=== PATIENT | male | born 1965 | race Caucasian/White ===

== ENCOUNTER 2019-05-05 11:54 | Day surgery (SDC) | payer OTHER, SELFPAY ==
--- NOTE | 2019-05-05 | PATH_ITS ---
[facility] Accession Number: [id number] . 01 Material submitted: . PART A: colon - TRANSVERSE POLYP, 6-8 MM X1, 4-6 MM X2 PART B: sigmoid colon - SIGMOID POLYP, 4-6 MM . 02 Diagnosis: A. Transverse Colon, 6-8 MM X1, 4-6 MM X2, Polyps: Fragments of tubular adenoma (3 polyps removed). . B. Sigmoid Colon, 4-6 MM, Polyp: Tubular adenoma. [facility] 05/08/2019 1003 Local . 02 Electronically signed: . Bon Ferrer MD, PhD, Pathologist NPI- [id number] . 01 Gross description: . Part A: TRANSVERSE POLYP, 6-8 MM X1, 4-6 MM X2: Received in formalin are 4 fragment(s) of pastrana, soft tissue measuring 0.2 x 0.2 x 0.2 cm to 0.3 x 0.2 x 0.2 cm which is entirely submitted and submitted entirely in 1 cassette(s) Part B: SIGMOID POLYP, 4-6 MM: Received in formalin is 1 fragment(s) of pastrana, soft tissue measuring 0.3 x 0.3 x 0.2 cm which is entirely submitted and submitted entirely in 1 cassette(s) /[facility] 05/05/2019 2018 Local . 02 Pathologist provided ICD-10: D12.3, D12.5 . 02 CPT . 009297, 235033 Performed at: 01 [facility], [facility] [address] [id number] MD Abdiaziz Novoa MD Phone: [phone] Performed at: 02 [facility] [address] [place], [place] [id number] MD Kati Aponte MD Phone: [phone]
[2019-05-05 12:24] VITALS: BP 154/106; PULSE 86; RESP 15; TEMP 36.2; O2SAT 95; BMI 27.8
[2019-05-05] MEDS: SODIUM CHLORIDE 0.9% 1,000 ML 200 ML IV (12:31)
[2019-05-05] MEDS: HYOSCYAMINE 0.125 MG TABLET PO (12:32)
--- NOTE | 2019-05-05 13:02 | PM.PREOP ---
Pre-operative Note Interval Note History & Physical reviewed/Exam performed by Physician: Yes Changes to H&P: No ASA Class (for procedural sedation): II
--- NOTE | 2019-05-05 13:03 | PM.OP.ENDO ---
Operative Date/Time/Diagnoses Date of procedure: 05/05/19 Time of procedure: 13:03 Pre-op diagnosis: 1. Irritable bowel syndrome 2. History of abdominal pain, left lower quadrant 3. Screening for colon cancer Post-op diagnosis: other (Transverse polyp x3, with 4-8 mm; sigmoid polyp x1, 4-6 mm) Procedure & Clinicians Study performed: Colonoscopy Same procedure as scheduled: Yes Indications: 1. Irritable bowel syndrome 2. History of abdominal pain, left lower quadrant 3. Screening for colon cancer Surgeon: Mary Stroud Procedure Notes SCOAP/Timeout: 13:08 Procedure in detail: ENDOSCOPIST: Mary Stroud MD Sedation RN: Brisa Elena RN Sedation start time: 1:08 p.m. Sedation end time: 1:34 p.m. PROCEDURE: Colonoscopy with biopsy INDICATIONS: 1. Irritable bowel syndrome 2. History of abdominal pain, left lower quadrant 3. Screening for colon cancer MEDICATION: Levsin 0.125 mg sublingual, incremental doses of Versed and fentanyl until appropriate level sedation achieved. ASA CLASS: 2 CECAL WITHDRAWAL TIME: 17 minutes COMPLICATIONS: None. EXTENT OF PROCEDURE: Cecum. QUALITY OF PREP: Good with portions of liquid stool. PROCEDURE: Prior to insertion of the colonoscope, a digital rectal examination was accomplished with circumferential palpation of the distal rectal mucosa without significant findings being noted. The high-definition colonoscope was passed into the rectum in the usual fashion and advanced over to the cecum without difficulty. The ileocecal valve, appendiceal stoma, and medial wall all could be inspected and []no abnormalities were seen. ASCENDING COLON: As the colonoscope was withdrawn, care was taken to expose and inspect the haustral folds and no abnormalities were seen. HEPATIC FLEXURE: Normal no polyps, diverticula or other abnormalities. TRANSVERSE COLON: 3 polyps, 4-8 mm in size were noted and removed with cold biopsy forceps, excellent hemostasis. Otherwise, normal, no diverticula or other abnormalities. DESCENDING COLON: Normal no polyps, diverticula or other abnormalities. SIGMOID COLON: One 4-6 mm polyp, removed with cold biopsy forceps, excellent hemostasis. Otherwise, normal, no polyps, diverticula or other abnormalities. RECTUM: Normal. J maneuver was produced. There was no significant perianal disease. The J maneuver was broken. The remainder of the rectum was inspected and there was no external hemorrhoid disease. The scope was withdrawn. IMPRESSION: 1. Transverse polyp x3, 4-8 mm, removed with cold biopsy forceps 2. Sigmoid polyp x1, 4-6 mm, removed with cold biopsy forceps PLAN: 1. Follow-up in clinic status post pathology results. The possibility of a missed lesion including a malignancy has been discussed with the patient previously. Potential alarm symptoms have been discussed and should be reported immediately. Scope withdrawal time: 17 minutes Sedation minutes: 24 Findings: polyp Specimen(s): other Complications: none Impression: As above. Post-procedure Recommendations: Will call with biopsy results Follow up: weeks (2) Disposition: PACU
[2019-05-05] MEDS: fentaNYL 250 MCG/5 ML INJ IV (13:38)
[2019-05-05] MEDS: MIDAZOLAM 5 MG/5 ML VIAL IV (13:39)
[2019-05-05 13:40] VITALS: BP 117/85; PULSE 79; RESP 12; TEMP 37; O2SAT 97
[2019-05-05 13:45] VITALS: BP 116/85; PULSE 103; RESP 10; O2SAT 95
[2019-05-05 13:52] VITALS: BP 118/99; PULSE 82; RESP 13; TEMP 36.2; O2SAT 98
[2019-05-05 14:20] VITALS: BP 121/89; PULSE 79; RESP 14; TEMP 36.1; O2SAT 98
== END 2019-05-05 14:25 ==
LOC: ENDO 11:55
PROVIDERS: PCP Family Medicine; Visit Provider Student in an Organized Health Care Education/Training Program
PROC: 0DJD8ZZ Inspection of Lower Intestinal Tract, Via Natural or Artificial Opening Endoscopic (ICD-10-PCS; CPT 45378; principal; 2019-05-05 13:00)
DX: Z12.11 Encounter for screening for malignant neoplasm of colon (principal); D12.3 Benign neoplasm of transverse colon; D12.5 Benign neoplasm of sigmoid colon
CPT/HCPCS: 45380; J2250; J3010

== ENCOUNTER 2019-06-25 14:35 | Emergency (ER) | payer OTHER, SELFPAY ==
[2019-06-25 14:42] VITALS: BP 160/107; PULSE 85; RESP 18; TEMP 36.4; O2SAT 97; BMI 28.0
--- NOTE | 2019-06-25 15:07 | DI.RAD.S_ITS ---
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 COMPARISON: None. FINDINGS: Bones: No fractures or dislocations. Carpal bones are normally aligned. No suspicious bony lesions. Soft tissues: Soft tissue swelling and apparent soft tissue gas can be seen. Evaluation is limited by overlying gauze material. No radiopaque foreign bodies are seen. IMPRESSION: Soft tissue injury, without a radiopaque foreign body seen. No displaced fracture can be seen. If it would be helpful for clinical management decision making, please consider a dedicated CT of the hand for further evaluation. Dictated by: Arturo Ornelas M.D. on 06/25/2019 at 14:34 Approved by: Arturo Ornelas M.D. on 06/25/2019 at 14:35
--- NOTE | 2019-06-25 17:52 | PC.NURSE ---
Splint and bulky dressing applied per Kaye. Capillary refill vs compression education given. Pt indicates understanding.
[2019-06-25 18:05] VITALS: BP 146/86; PULSE 72; RESP 16; O2SAT 98
--- NOTE | 2019-06-25 19:06 | ED.WOUNDLAC ---
HPI - Wound/Laceration <DANITA Che - Last Filed: 06/25/19 19:11> General Chief Complaint: Wound/Laceration Stated Complaint: cut on left hand Time Seen by Provider: 06/25/19 15:03 Source: patient and family Mode of arrival: Ambulatory Limitations: no limitations History of Present Illness HPI narrative: The patient is a 54-year-old male nonsmoker with history of seasonal allergies who presents with a chief complaint of a laceration on his left hand. He states he accidentally cut his palm on a blade of a queasy not mixer blender. He states his tetanus was in the last year. He states he has full range of motion of his left hand. He states that the cut is at the base of the thumb. He states he has not washed out. He is not concerned about foreign body. Related Data Home Medications Medication Instructions Recorded Confirmed atorvastatin [Lipitor] 40 mg PO DAILY 05/05/19 05/05/19 fluticasone propionate [Flonase 2 spray INTRANASAL DAILY 05/05/19 05/05/19 Allergy Relief] Allergies Allergy/AdvReac Type Severity Reaction Status Date / Time No Known Drug Allergies Allergy Verified 06/25/19 14:42 Review of Systems <DANITA Che - Last Filed: 06/25/19 19:11> Review of Systems Narrative: GENERAL: Denies chills, fatigue, malaise, fever, sweats. HEENT: Denies sinus pain, ear pain, sore throat, difficulty swallowing, dizziness. RESPIRATORY: Denies dyspnea, cough, wheezing, hemoptysis, sputum. CARDIOVASCULAR: Denies chest pain, palpitations, orthopnea, edema, GASTROINTESTINAL: Denies nausea, vomiting, abdominal pain, diarrhea, constipation, melena. : Denies dysuria, frequency, incontinence, hematuria, urinary retention. MUSCULOSKELETAL: denies weakness, joint pain, or bony pain SKIN: See HPI NEUROLOGIC: Denies weakness, headache, numbness, change in speech, confusion, seizures, incoordination. PSYCHIATRIC: No concerning psychosocial issues. 12 point review of systems is negative except for those stated above Patient History <DANITA Che - Last Filed: 06/25/19 19:11> Social History household members: spouse Smoking Status: Never smoker alcohol intake frequency: a few times a week Substance Use Type: marijuana Exam <DANITA Che - Last Filed: 06/25/19 19:11> Narrative Exam Narrative: GENERAL: This is a well-nourished, well-developed patient, in no acute distress HEAD: Atraumatic. Normocephalic. No temporal or scalp tenderness. EYES: Pupils equal round and reactive. Extraocular motions intact. No scleral icterus. No injection or drainage. ENT: Nose without bleeding, purulent drainage or septal hematoma. Throat without erythema, tonsillar hypertrophy or exudate. Uvula midline. Airway patent. NECK: Trachea midline. No JVD or lymphadenopathy. Supple, nontender, no meningeal signs. CARDIOVASCULAR: Regular rate and rhythm RESPIRATORY: No cough. No increased respiratory effort. No accessory muscle use. EXTREMITIES: 6 cm laceration noted over base of left 1st digit on palmar aspect. Through dermis, no obvious muscle or tendon involvement. Able do thumbs up, thumbs down, make a fist. Able to flex and extend left 1st digit against resistance. Capillary refill less than 2 seconds. Laceration is oozing blood. 1.5 cm separation between signs of laceration. linear. BACK: Nontender without deformity or crepitance. No flank tenderness. NEURO: AOx3. SKIN: See extremity exam Initial Vital Signs Initial Vital Signs: Vital Signs Temperature 97.6 F 06/25/19 14:42 Pulse Rate 85 06/25/19 14:42 Respiratory Rate 18 06/25/19 14:42 Blood Pressure 160/107 H 06/25/19 14:42 Pulse Oximetry 97 06/25/19 14:42 <Shantel Turpin MD - Last Filed: 06/26/19 07:05> Initial Vital Signs Initial Vital Signs: Vital Signs Temperature 97.6 F 06/25/19 14:42 Pulse Rate 85 06/25/19 14:42 Respiratory Rate 18 06/25/19 14:42 Blood Pressure 160/107 H 06/25/19 14:42 Pulse Oximetry 97 06/25/19 14:42 Procedures <DANITA Che - Last Filed: 06/25/19 19:11> Laceration Repair Laceration 1: Site: hand Side (If applicable): left Size (cm): 6 Description: linear Depth: simple, single layer Local Anesthetic: lidocaine 2% and with epi Amount of anesthesia used (mL): 6 Pre-repair: wound explored, irrigated extensively (With Hibiclens, cleansed with iodine as well) and deep structures intact Skin layer closed with: nylon Size (cm): 5-0 Number of sutures: 6 Technique: simple, interrupted (3) and horizontal mattress (3) Course <DANITA Che - Last Filed: 06/25/19 19:11> Orders Ordered: Discontinued Medications Lidocaine/Epinephrine (Xylocaine 2% W/Epi) 20 ml INJ INTRA-OP ONE Stop: 06/25/19 15:08 Last Admin: 06/25/19 16:15 Dose: Not Given Documented by: TIO Vital Signs Vital signs: Vital Signs - 8 hr 06/25/19 14:42 06/25/19 18:05 Temperature 97.6 F Pulse Rate 85 72 Respiratory Rate 18 16 Blood Pressure 160/107 H Blood Pressure [Right Arm] 146/86 H Pulse Oximetry 97 98 <Shantel Turpin MD - Last Filed: 06/26/19 07:05> Orders Ordered: Discontinued Medications Lidocaine/Epinephrine (Xylocaine 2% W/Epi) 20 ml INJ INTRA-OP ONE Stop: 06/25/19 15:08 Last Admin: 06/25/19 16:15 Dose: Not Given Documented by: TIO Vital Signs Vital signs: Vital Signs - 8 hr 06/25/19 14:42 06/25/19 18:05 Temperature 97.6 F Pulse Rate 85 72 Respiratory Rate 18 16 Blood Pressure 160/107 H Blood Pressure [Right Arm] 146/86 H Pulse Oximetry 97 98 MDM - Wound/Laceration <DANITA Che - Last Filed: 06/25/19 19:11> Imaging Data Hand x-ray: Radiologist's impression: [address] [address] XRay Report Signed Patient: Olvin Hairston WMR#: [id number] : 1965Acct:[id number] Age/Sex: 54 / MDate of Service: 06/25/19 Loc: ED Accession Number: [id number] Procedure: XR hand LT 2V Ordering Provider: Isela RestrepoBC PROCEDURE: XR HAND LT 2V 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 COMPARISON: None. FINDINGS: Bones: No fractures or dislocations. Carpal bones are normally aligned. No suspicious bony lesions. Soft tissues: Soft tissue swelling and apparent soft tissue gas can be seen. Evaluation is limited by overlying gauze material. No radiopaque foreign bodies are seen. IMPRESSION: Soft tissue injury, without a radiopaque foreign body seen. No displaced fracture can be seen. If it would be helpful for clinical management decision making, please consider a dedicated CT of the hand for further evaluation. Dictated by: Arturo Ornelas M.D. on 06/25/2019 at 14:34 Approved by: Arturo Ornelas M.D. on 06/25/2019 at 14:[address] [facility] Narrative Medical decision making narrative: The patient is a 54-year-old female who presents with a chief complaint of laceration. I was closed as noted in procedural note. Tolerated well. Who is copiously cleansed as noted in procedural note. His x-ray shows no foreign bodies or fractures. Patient's tetanus is up-to-date. Encouraged follow-up with primary care provider. Discussed monitor for signs and symptoms of infection such as redness pus swelling etc. Patient and state understanding of return precautions as well follow-up care no questions or concerns upon discharge. I discussed at length keeping the laceration clean, not increasing chance of infection by putting and dirty water. Follow up for suture removal in 7 days. Wound was dressed by nursing. Discharge Plan Departure Patient Disposition: Home Clinical Impression: Laceration Discharge Date/Time: 06/25/19 18:06 Instructions: How to Care for a Laceration After Repair, DI for Laceration Repair, How To Perform RICE (Rest, Ice, Compress, Elevate) Activity Restrictions/Additional Instructions: Today we sutured your hand. Please follow up in 1 week for suture removal. Please elevate your hand, use ice [id number] medications as needed and able Please monitor for signs and symptoms of infection such as redness pus and fever as well as decreased range of motion. Please come back to the emergency concerns. Please do not get your dressing wet. You can wash it with soap and water but do not keep wet dressing on as this will increase her chance of infection Prescriptions: No Action atorvastatin [Lipitor] 40 mg Tablet 40 mg PO DAILY RF: 0 fluticasone propionate [Flonase Allergy Relief] 50 mcg/actuation [place],Suspension 2 spray INTRANASAL DAILY RF: 0 Referrals: Max Aguilar MD [Primary Care Provider] -
== END 2019-06-25 18:06 | disposition home or self-care (01) ==
PROVIDERS: Emergency Provider Nurse Practitioner Family; PCP Family Medicine
DX: S61.412A Laceration without foreign body of left hand, initial encounter (principal); W26.9XXA Contact with unspecified sharp object(s), initial encounter
CPT/HCPCS: 12002; 73120; 99283

== ENCOUNTER → 2022-04-27 09:30 | Outpatient (CLI) | payer OTHER, SELFPAY ==
[2022-04-27 13:26] LABS: COVID19 -Nasal RAPID Negative (Negative)
== END ==
PROVIDERS: PCP Family Medicine; Visit Provider Surgery
DX: Z01.812 Encounter for preprocedural laboratory examination (principal); Z20.822 Contact with and (suspected) exposure to COVID-19
CPT/HCPCS: 87635; C9803

== ENCOUNTER 2022-04-28 09:25 | Day surgery (SDC) | payer OTHER, SELFPAY ==
[2022-04-28] VITALS (7 sets, daily range): BP systolic 137–151; BP diastolic 92–109; PULSE 69–88; RESP 10–20; TEMP 36.1–36.4; O2SAT 97–98; BMI 26.7
--- NOTE | 2022-04-28 | PATH_ITS ---
[facility] Accession Number: [id number] . 01 Material submitted: . PART A: colon - ASCENDING COLON POLYP PART B: colon - SIGMOID COLON POLYP . 01 Diagnosis: A. Ascending Colon, Polyp, Biopsy: Tubular adenoma. . B. Sigmoid Colon, Polyp, Biopsy: Tubular adenoma. V 04/30/2022 1332 Local . 01 Electronically signed: . Kati Aponte MD, Pathologist NPI- [id number] . 01 Gross description: . Part A: ASCENDING COLON POLYP: Received in formalin is 1 fragment(s) of pastrana, soft tissue measuring 0.3 x 0.2 x 0.2 cm submitted entirely in 1 cassette(s) Part B: SIGMOID COLON POLYP: Received in formalin is 1 fragment(s) of pastrana, soft tissue measuring 0.5 x 0.2 x 0.2 cm submitted entirely in 1 cassette(s) /AIN 04/29/2022 1930 Local . 01 Pathologist provided ICD-10: D12.2, D12.5 . 01 CPT . 098289, [id number] Performed at: 01 [facility] [address] [place] [id number] MD Abdiaziz Novoa MD Phone: [phone]
[2022-04-28] MEDS: LACTATED RINGERS 1,000 ML 200 ML IV (09:53)
--- NOTE | 2022-04-28 10:46 | PM.HP.1 ---
History of Present Illness History of Present Illness Date Patient Seen: 04/28/22 Time Patient Seen: 10:46 Chief complaint: DX COLONOSCOPY Narrative: The patient presents for colorectal screening. He has a personal history of colonic polyps. Last colonoscopy was 3 years ago and significant for benign polyps. No personal or family history of colon cancer. On further history denies any recent gastrointestinal symptoms. No nausea, vomiting, abdominal pain, loss of appetite, unexplained weight loss, change in bowel habits, diarrhea, constipation, melena, hematochezia, or bright red blood per rectum. Patient History Family & Social History Social History: household members spouse Tobacco & Substance use: Smoking Status Never smoker alcohol intake frequency a few times a week Substance Use Type marijuana Meds Home Medications and Allergies Home Medications Medication Instructions Recorded Confirmed Type atorvastatin 40 mg tablet (Lipitor) 40 mg PO DAILY 05/05/19 04/28/22 History fluticasone propionate 50 2 spray intranasal DAILY 05/05/19 04/28/22 History mcg/actuation nasal spray,suspension (Flonase Allergy Relief) Allergies Allergy/AdvReac Type Severity Reaction Status Date / Time No Known Drug Allergies Allergy Verified 04/28/22 09:51 Exam Vital Signs (past 8 hours): - 04/28/22 09:53 Temperature 96.9 F L Pulse Rate 88 Respiratory Rate 20 Blood Pressure 145/98 H Pulse Oximetry 97 Oxygen Delivery Method Room Air Oxygen Delivery Method Room Air Narrative Exam Narrative: General adult male alert oriented no acute distress Abdomen soft nontender nondistended Assessment & Plan Assessment and plan (1) Personal history of colonic polyps: Status: Acute Assessment & Plan narrative: The patient requires colorectal screening and colonoscopy is recommended. Technical details were discussed. Risks, benefits, alternatives explained. Risks including but not limited to myocardial infarction, aspiration, bleeding, pain, missed lesion, incomplete examination, need for further radiographic studies, colonic perforation, and need for major abdominal surgery were discussed. All questions were answered to their satisfaction, and they are in agreement with this plan. Time Spent With Patient Critical Care time: I spent a total of [] minutes of critical care time on this patient's care today; this time is exclusive of procedural time.
[2022-04-28] MEDS: fentaNYL 100 MCG/2 ML INJ 150 MCG IV (11:01)
[2022-04-28] MEDS: MIDAZOLAM 5 MG/5 ML VIAL 6 MG IV (11:01)
--- NOTE | 2022-04-28 11:14 | P.OP.COLON_ITS ---
Operative Date/Time/Diagnoses Date of procedure: 04/28/22 Time of procedure: 11:14 Pre-op diagnosis: Personal history of colonic polyps Post-op diagnosis: same Procedure & Clinicians Study performed: Colonoscopy and polypectomy Same procedure as scheduled: Yes Indications: Personal history of colonic polyps Surgeon: Vahe Rodriguez Procedure Notes Procedure in detail: Medications: Conscious sedation using 6mg IV midazolam and 150mcg IV of f entanyl The history and physical was performed/updated and the patient is ASA class is 2. The procedure was discussed in detail with the patient. Potential risks complications including infection, bleeding, missed diagnosis, perforation, need for surgery, and were explained. Their questions were answered and informed consent was obtained. Patient was brought to the procedure room and placed standard monitoring equipment. The patient's vital signs were monitored continuously throughout the entire procedure. Prior to starting time-out was performed. The patient was placed in the left lateral recumbent position. Procedural sedation was administered. Examination began with a thorough inspection of the perianal area there was no evidence of fissures, fistulae, external hemorrhoids or cutaneous malignancy. The colonoscopy scope was then placed into the anal canal and was advanced to the cecum, which was identified by the ileocecal valve, the appendiceal orifice and the confluence of the taenia. The scope was then slowly withdrawn examining colon thoroughly in all directions, irrigating it of any residual stool. FINDINGS 1. Ascending colon-3 mm from polyp removed with biopsy forceps 2. Sigmoid colon-5 mm polyp removed with biopsy forceps The patient tolerated the procedure well. They will be discharged once criteria are met. The prep was of good/excellent quality. The withdrawl time was 9 minutes. The sedation time was 18 minutes. Specimen(s): other (Ascending and sigmoid colon polyps) Complications: none Impression: Colonic polyps Post-procedure Plan for aftercare: Will notify with biopsy results Disposition: same day surgery
--- NOTE | 2022-04-28 11:54 | SUR.PHASEII ---
Patient ambulated to wheelchair with steady gait. Tolerated fluids. Provided written and verbal discharge instructions. patient stated understanding. Discharged patient by wheelchair to private vehicle in stable condition.
== END 2022-04-28 11:54 | disposition home or self-care (01) ==
PROVIDERS: PCP Family Medicine; Referring Provider Surgery; Visit Provider Surgery
PROC: 0DJD8ZZ Inspection of Lower Intestinal Tract, Via Natural or Artificial Opening Endoscopic (ICD-10-PCS; CPT 45378; principal; 2022-04-28 10:45)
DX: Z12.11 Encounter for screening for malignant neoplasm of colon (principal); Z86.010 Personal history of colon polyps; D12.2 Benign neoplasm of ascending colon; D12.5 Benign neoplasm of sigmoid colon
CPT/HCPCS: 45380; 99152; J2250; J3010

== ENCOUNTER 2022-11-29 00:27 | Emergency (ER) | payer OTHER, SELFPAY ==
[2022-11-29 00:39] VITALS: BP 153/89; PULSE 108; RESP 15; TEMP 37; O2SAT 98; BMI 28.0
--- NOTE | 2022-11-29 00:47 | DI.RAD.S_ITS ---
PROCEDURE: XR KNEE RT 3V INDICATIONS: Laceration to knee after fall, unsure what he cut knee on. TECHNIQUE: 3 views of the knee were acquired. COMPARISON: None. FINDINGS: Bones: No fractures or dislocations. No suspicious bony lesions. Note is made of quadriceps tendon insertion spurring at the superior patella. Soft tissues: No joint effusion. No suspicious soft tissue calcifications. There is a small amount of gas tracking along the superficial layer of the quadriceps tendon consistent with laceration. No foreign body seen. IMPRESSION: No fracture or foreign body found. Swelling in the area of laceration with in [place] of a small amount of gas along the anterior border of the quadriceps tendon area. Dictated by: Laci Jones M.D. on 11/29/2022 at 1:18 Approved by: Laci Jones M.D. on 11/29/2022 at 1:19
[2022-11-29] MEDS: LIDOCAINE 1% (PF) 5 ML INJ (01:51)
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
[2022-11-29] MEDS: BACITRACIN OINT 0.9 GM PCKT 5 APPLIC TOP (03:26)
[2022-11-29] MEDS: cephALEXin 250 MG CAPSULE 500 MG PO (03:34)
== END 2022-11-29 03:40 | disposition home or self-care (01) ==
PROVIDERS: Emergency Provider Emergency Medicine; PCP Family Medicine
DX: S86.821A Laceration of other muscle(s) and tendon(s) at lower leg level, right leg, initial encounter (principal); V27.01XA Electric (assisted) bicycle driver injured in collision with fixed or stationary object in nontraffic accident, initial encounter
CPT/HCPCS: 13121; 13122; 73562; 99284

== ENCOUNTER → 2024-08-16 14:28 | Outpatient (CLI) | payer OTHER, SELFPAY ==
--- NOTE | 2024-08-16 14:32 | DI.CT.S_ITS ---
PROCEDURE: CT SINUS SCREEN WO CON INDICATIONS: CHRONIC PANSINUSITIS / NASAL OBSTRUCTION TECHNIQUE: Noncontrast 3.0 mm axial images acquired from the frontal sinuses to the mid-sella, with coronal and sagittal reformats. For radiation dose reduction, the following was used: automated exposure control, adjustment of mA and/or kV according to patient size. COMPARISON: None. FINDINGS: Image quality: Excellent. Maxillary Sinuses: No bony remodeling or destruction. Small mucous retention cysts can be seen within the maxillary sinuses. Minimal mucosal thickening can be seen within the paranasal sinuses. Ethmoid Air Cells: No bony remodeling or destruction. Sinuses are clear. Sphenoid Sinuses: No bony remodeling or destruction. Sinuses are clear. Frontal Sinuses: No bony remodeling or destruction. Sinuses are clear. Ostiomeatal Complexes: The ostiomeatal complexes are patent, yet they are constitutionally narrowed, with bilateral Moises cells. Miscellaneous: Visualized intra-orbital contents are normal. No gilda bullosa or paradoxical turbinate curvature. There is mild leftward nasal septal deviation, with a leftward directed bony nasal septal spur. IMPRESSION: Minimal mucosal thickening seen within the maxillary sinuses. The ostiomeatal complexes are patent, yet they are constitutionally narrowed, with bilateral Moises cells. There is mild leftward nasal septal deviation, with a leftward directed bony nasal septal spur. Dictated by: Arturo Ornelas M.D. on 08/16/2024 at 15:32 Approved by: Arturo Ornelas M.D. on 08/16/2024 at 15:34
== END ==
LOC: CT 14:31
PROVIDERS: PCP Family Medicine; Referring Provider Otolaryngology; Visit Provider Otolaryngology
DX: J32.4 Chronic pansinusitis (principal); J34.89 Other specified disorders of nose and nasal sinuses; J34.2 Deviated nasal septum
CPT/HCPCS: 70486